=== PATIENT | male | born 1970 | race Caucasian/White ===

== ENCOUNTER 2025-03-24 14:12 | Emergency (ER) | payer BC, SELFPAY ==
[2025-03-24] VITALS (8 sets, daily range): BP systolic 124–140; BP diastolic 69–94; PULSE 60–72; RESP 13–20; TEMP 36.8–37; O2SAT 98; BMI 28.7
--- NOTE | 2025-03-24 14:12 | ECG_ITS ---
APPROVED REPORT Exam: Resting ECG HR:63 bpm ECG Measurements Heart Rate 63 AXES WI 187 P 49 QRSd 109 QRS 27 QT 397 T 18 QTc 404 Conclusion SINUS RHYTHM NORMAL ECG UNCONFIRMED REPORT Electronically signed by : CHERRY ALEXANDER, 03/27/2025 01:17:19
[2025-03-24 14:23] LABS: Microscopic, Urine URINE MICROSCOPIC (MICROSCOPIC)
--- NOTE | 2025-03-24 14:33 | XR_ITS ---
FINAL REPORT CLINICAL HISTORY: Chest pain COMPARISON: None FINDINGS: Film was obtained in lordotic positioning. The heart size is normal. The mediastinum is normal. There is no focal infiltrate or edema. There are no pleural effusions. There is no pneumothorax. There is no osseous abnormality. IMPRESSION: No acute cardiopulmonary process Reviewed, Interpreted and Dictated by Piyush Ontiveros MD Transcribed by Lucie Ortiz Authenticated and [facility]
[2025-03-24 14:40] LABS: Basophils # 0.1 K/mm3 (0-0.2); Basophils % 2.2 % (0.1-2.0); Eosinophils # 0.2 Kmm3 (0.0-0.4); Eosinophils % 2.8 % (0.1-12.0); Hematocrit 45.1 % (42.0-52.0); Hemoglobin 15.3 g/dL (14.1-18.0); Immature Granulocytes # 0.01 10^3uL; Immature Granulocytes % 0.2 %; Lymphocytes # 2.5 K/mm3 (0.7-4.5); Lymphocytes % 38.9 % (10-50); Mean Corpuscular HGB Conc 33.9 g/dL (31.8-35.4); Mean Corpuscular Hemoglobin 30.8 pg (27.0-31.2); Mean Corpuscular Volume 90.7 fl (80-94); Mean Platelet Volume 11.4 fl (7.4-10.4); Monocytes # 0.5 K/mm3 (0.1-1.0); Monocytes % 7.4 % (1.7-9.3); Neutrophils # 3.1 K/mm3 (1.8-7.8); Neutrophils % 48.5 % (37.0-80.0); Nucleated Red Blood Cells # 0 10^3/uL; Nucleated Red Blood Cells % 0 %; Platelet Count 196 K/mm3 (142-424); Red Blood Count 4.97 M/mm3 (4.60-6.20); Red Cell Distribution Width 12.4 % (11.5-17.5); White Blood Count 6.4 K/mm3 (4.8-10.8)
[2025-03-24 14:42] LABS: Appearance,Urine CLEAR (Clear); Bilirubin,Urine Negative (Negative); Blood, Urine Negative (Negative); Color,Urine YELLOW (Yellow); Glucose,Urine (UA) Negative (Negative); Ketones,Urine Negative (Negative); Leukocyte Esterase,Urine Negative (Negative); Nitrate,Urine Negative (Negative); Protein,Urine Negative (Negative); Urobilinogen,Urine 0.2 EU/dl (0.2)
[2025-03-24 14:43] LABS: Albumin Level 4.8 g/dl (3.5-5.0); Chloride 106 mmol/L (98-107); Potassium 4.4 mmoL/L (3.5-5.1); Sodium 142 mmol/L (136-145)
[2025-03-24 14:45] LABS: Alanine Aminotransferase 52 U/L (12-78); Aspartate Amino Transferase 43 U/L (17-59); Blood Urea Nitrogen 11 mg/dl (9-20); Creatinine Clearance Estimated 155 mL/min (50-200); Estimated Glomerular Filt Rate 118 ml/min (>60); GFR (African American) 142 ML/MIN (>60)
[2025-03-24 14:46] LABS: Albumin/Globulin Ratio 1.5 (1.1-1.8); Alkaline Phosphatase 101 U/L (38-126); Anion Gap 10.4 mEq/L (5-15); Bilirubin,Total 0.5 mg/dl (0.2-1.3); Calcium 9.8 mg/dl (8.4-10.2); Carbon Dioxide 30 mmol/L (22.0-30.0); Globulin 3.1 g/dL (1.3-3.2); Glucose 101 mg/dl (74-100); INR 0.92 (0.9-1.1); Magnesium 2.2 mg/dl (1.6-2.3); Prothrombin Time 10.3 seconds (10.1-12.5); Total Protein,Serum 7.9 g/dl (6.3-8.2)
--- NOTE | 2025-03-24 14:46 | ED_ITS ---
Discharge Plan Disposition Patient Disposition: Home, Self-Care Condition: Good Referrals Follow up/Referrals: Maco Bella [Primary Care Provider, Medical] - See instructions Activity Restrictions/Add. Instructions Additional Instructions/Restrictions: Please follow-up with your family doctor in the upcoming days/weeks, please return to the emergency department with any worsening signs or symptoms any worsening chest pain shortness of breath. Clinical Impressions Clinical Impression: Chest pain Instructions Patient Instructions: DI for Atypical Chest Pain Print Language Print Language: Belarusian Discharge ED Provider: Jose Alejandro Danielle HPI <DESMOND Atkins - Last Filed: 03/24/25 17:40> General Chief Complaint: Chest Pain Stated Complaint: CP Time Seen by Provider: 03/24/25 14:33 Mode of Arrival: Ambulatory Source of Information: Patient Description of Symptoms (Recalled from ER Triage Doc. by RN): patient states he has been having left sided sharp chest pains for a week and states he could not ignore it any longer today. Patient states pain sometimes radiates down left arm. Patient states that he saw PCP several months ago and was diagnosed with hyperlipidemia and was prescribed medication for that but he never picked it up and started it. History of Present Illness HPI narrative: 54-year-old male presents to the emergency department with left-sided chest pain that he describes as sharp , as well as pressure , that have been intermittent for the last 1 to 2 weeks, he states yesterday he experienced some sharp pain that was an 8 out of 10 located to the left side chest, nonradiating, this subsided, and today he experienced another episode approximately 2 hours ago and is currently ongoing which is a 7 out of 10 in maximal pain scale. Patient denies any fever chills, nausea, shortness of breath, no abdominal pain, no vomiting, no diarrhea no constipation, no hematuria melena hematochezia hematemesis, urinary type symptomatology, no lightheadedness no dizziness. There is no trauma or inciting event. Patient has remote history of hyperlipidemia, not taking any medications, denies any other relevant past medical history takes no other medications at home, unsure of family history. Patient utilizes tobacco occasionally, utilizes alcohol occasionally, denies any other illicit drug use. Initial triage vitals unremarkable. Patient does tell me that he is somewhat concerned about myocarditis , after reading some stuff online . Onset (ago): week(s) Duration: intermittent Activity at onset: during rest Pain location: left chest Severity: moderate Severity scale (1-10): 7 Quality: heaviness and sharp Pain radiation: none Related Data Allergies Allergy/AdvReac Type Severity Reaction Status Date / Time No Known Allergies Allergy Verified 03/24/25 14:25 [facility] <DESMOND Atkins - Last Filed: 03/24/25 17:40> [facility] Disclaimer: The information contained in this section may have been updated after the patient was seen, as this information can be updated by other users. Social History (Updated 03/24/25 @ 17:40 by DESMOND Atkins) Smoking Status: Never smoker alcohol intake: never current occupational status: other Travel in the last 8 weeks?: None Have you lived/traveled outside US in past 30 days?: No Contact w/someone who lives/traveled outside US past 30 days?: No Exposure to someone with infectious disease in past 14 days?: No Do you have a fever (greater than 100.4 F or 38 C)?: No Have you tested positive for COVID-19?: No Exposed to someone with COVID-19 in past 14 days?: No Do you have a sore throat?: No Do you have a cough?: No Do you have any weakness?: No Do you have any diarrhea?: No Are you experiencing any unusual bleeding?: No Do you have any muscle aches/pain?: No Do you have any abdominal pain?: No Are you experiencing loss of taste or smell?: No <DESMOND Atkins - Last Filed: 03/24/25 17:40> ROS Obtained: Yes All systems reviewed & no additional complaints except as documented Physical Exam <DESMOND Atkins - Last Filed: 03/24/25 17:40> General General appearance: alert and in no apparent distress Head Head exam: atraumatic and normocephalic Eye Eye exam: Present normal appearance, PERRL and EOMI Neck Neck exam: Present full ROM; Absent meningismus Chest Chest inspection: Present normal inspection Respiratory Respiratory exam: Absent respiratory distress, wheezes, stridor, accessory muscle use or prolonged expiratory phase Cardiovascular Cardiovascular exam: Present normal rhythm and other (Pulses equal and symmetric in bilateral upper and lower extremities) Abdominal Exam Abdominal exam: Absent distention, tenderness, guarding, rebound or rigidity Extremities Exam Extremities exam: Absent edema Neurological Exam Neurological exam: Present alert Psychiatric Psychiatric exam: Present normal affect Skin Skin exam: Present warm and dry HEART Score <DESMOND Atkins - Last Filed: 03/24/25 17:40> HEART Score HEART Score assessment performed?: Yes HEART Score: 2 <Chadd Jiang MD - Last Filed: 03/25/25 09:27> HEART Score HEART Score: 4 Critical Care <DESMOND Atkins - Last Filed: 03/24/25 17:40> Critical Care Time Critical Care Time: No Medical Decision Making <DESMOND Atkins - Last Filed: 03/24/25 17:40> Medical Records Medical records reviewed: Yes I reviewed the patient's medical records. Kody Inquiry Pt receiving controlled substance: Yes Kody was queried for this patient: No Reason not queried -: Emergent pt cond-no time Risks and benefits of using a controlled substance: were discussed with pt by me Vital Signs Vital Signs: 03/24/25 14:17 03/24/25 15:01 03/24/25 15:30 Temperature 98.6 F Temperature Source Oral Pulse Rate Pulse Rate [Right Radial] 72 Respiratory Rate 17 15 17 Blood Pressure 137/69 131/73 Blood Pressure [Right Arm] 140/94 H Blood Pressure Mean [Right Arm] 109 Blood Pressure Source [Right Arm] Automatic Cuff Blood Pressure Position [Right Arm] Sitting 02 Sat by Pulse Oximetry 98 Oxygen Delivery Method Room Air 03/24/25 16:00 03/24/25 16:30 03/24/25 17:00 Temperature Temperature Source Pulse Rate 62 Pulse Rate [Right Radial] Respiratory Rate 19 18 18 Blood Pressure 134/76 124/83 133/81 Blood Pressure [Right Arm] Blood Pressure Mean [Right Arm] Blood Pressure Source [Right Arm] Blood Pressure Position [Right Arm] 02 Sat by Pulse Oximetry Oxygen Delivery Method 03/24/25 17:30 03/24/25 17:50 Temperature 98.2 F Temperature Source Pulse Rate 60 Pulse Rate [Right Radial] Respiratory Rate 13 20 Blood Pressure 133/83 133/83 Blood Pressure [Right Arm] Blood Pressure Mean [Right Arm] Blood Pressure Source [Right Arm] Blood Pressure Position [Right Arm] 02 Sat by Pulse Oximetry Oxygen Delivery Method Room Air Lab Data Lab results reviewed: Yes I reviewed the patient's lab results. Labs: Lab Results 03/24/25 14:19: Urine Color Yellow, Urine Appearance Clear, Urine pH 7.0, Ur Specific [place] 1.010, Urine Protein Negative, Urine Glucose (UA) Negative, Urine Ketones Negative, Urine Blood Negative, Urine Nitrate Negative, Urine Bilirubin Negative, Urine Urobilinogen 0.2, Ur Leukocyte Esterase Negative, Urine RBC None, Urine WBC None, Ur Squamous Epith Cells None, Urine Bacteria None 03/24/25 14:25: WBC 6.4, RBC 4.97, Hgb 15.3, Hct 45.1, MCV 90.7, MCH 30.8, MCHC 33.9, RDW 12.4, Plt Count 196, MPV 11.4 H, Neut % (Auto) 48.5, Lymph % (Auto) 38.9, [place] % (Auto) 7.4, Eos % (Auto) 2.8, Baso % (Auto) 2.2 H, Neut # (Auto) 3.1, Lymph # (Auto) 2.5, [place] # (Auto) 0.5, Eos # (Auto) 0.2, Baso # (Auto) 0.1, PT 10.3, INR 0.92, D-Dimer 0.35, Sodium 142, Potassium 4.4, Chloride 106, Carbon Dioxide 30, Anion Gap 10.4, BUN 11, Creatinine 0.70, Estimated Creat Clear 155, Estimated GFR 118, Est GFR ( Amer) 142, Glucose 101 H, Calcium 9.8, Magnesium 2.2, Total Bilirubin 0.5, AST 43, ALT 52, Alkaline Phosphatase 101, Troponin I < 0.01, NT-Pro-B Natriuret Pep 61.1, Total Protein 7.9, Albumin 4.8, Globulin 3.1, Albumin/Globulin Ratio 1.5 03/24/25 14:48: SARS-CoV-2 (PCR) Not detected, Influenza A Untype (PCR) Not detected, Influenza Type B (PCR) Not detected 03/24/25 16:47: Troponin I < 0.01 03/24/25 14:25 03/24/25 14:25 Response Orders (Tests/Meds): ED MEDICATIONS Discontinued Medications Generic Name Dose Route Start Last Admin Trade Name Freq PRN Reason Stop Dose Admin Aspirin 325 mg 03/24/25 14:45 03/24/25 15:12 Aspirin 325mg Tablet PO 03/24/25 14:46 325 mg ONCE ONE Administration Morphine Sulfate 4 mg 03/24/25 14:52 03/24/25 15:15 Morphine 4mg/Ml Syringe IV 03/24/25 14:53 Not Given ONCE ONE Ondansetron HCl 4 mg 03/24/25 14:53 03/24/25 15:15 Ondansetron 4mg/2ml Vial IV 03/24/25 14:54 Not Given ONCE ONE ORDERS Category Date Time Status XR chest portable Stat Exams 03/24/25 14:33 Completed Complete Blood Count Auto Diff Stat Lab 03/24/25 14:25 Completed Comprehensive Metabolic Panel Stat Lab 03/24/25 14:25 Completed D-Dimer Stat Lab 03/24/25 14:25 Completed Magnesium Stat Lab 03/24/25 14:25 Completed NT Pro Brain Natriuretic Pep. Stat Lab 03/24/25 14:25 Completed PT INR [Prothrombin Time INR] Stat Lab 03/24/25 14:25 Completed Rapid PCR Covid and Flu A/B Stat Lab 03/24/25 14:48 Completed Troponin I Q3H Lab 03/24/25 16:47 Completed Troponin I Stat Lab 03/24/25 14:25 Completed UA [Urinalysis and Microscopic] Stat Lab 03/24/25 14:19 Completed MDM Narrative Medical Decision Narrative: 54-year-old male presents emergency department with chest pain differential diagnosis to include but not limited to ACS, cardiac arrhythmia, electro disturbance, PE, costochondritis, pneumonia, pneumothorax, new onset CHF, acute bronchitis among others. discussed patient case with attending physician he saw and examined the patient as well. Will obtain basic laboratory studies, chest x-ray D-dimer magnesium level proBNP PT/INR, troponin, UA, rapid PCR COVID and flu, EKG, give the 325 mg p.o. aspirin for pain, as well as 4 mg morphine IV and 4 mg IV Zofran. CBC unremarkable PT/INR within normal limits Urinalysis is unremarkable CMP is notable for I along with the attending physician reviewed the patient's initial EKG that was performed at 14:12, NSR at 63 bpm [place] interval within normals, QT interval within normal limits there is no STEMI. Troponin is less than 0.01, proBNP within normal limits. Was notified by nursing staff at approximately 3:10 PM the patient declined/refused morphine and Zofran administration. D-dimer is negative, at 0.35, thus ruling out PE/VTE. COVID-19 and influenza are negative via PCR. I reviewed the patient's chest x-ray along the corresponding radiologic report, no acute cardiopulmonary process. Repeat troponin is less than 0.01. 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 I believe that less likely to be cardiac in nature of the patient symptomatology, more likely patient has musculoskeletal versus anxiety/panic attack type reaction to his chest pain. Patient voiced understanding of the [facility] plan/discharge plan. <Chadd Jiang MD - Last Filed: 03/25/25 09:27> Vital Signs Vital Signs: 03/24/25 14:17 03/24/25 15:01 03/24/25 15:30 Temperature 98.6 F Temperature Source Oral Pulse Rate Pulse Rate [Right Radial] 72 Respiratory Rate 17 15 17 Blood Pressure 137/69 131/73 Blood Pressure [Right Arm] 140/94 H Blood Pressure Mean [Right Arm] 109 Blood Pressure Source [Right Arm] Automatic Cuff Blood Pressure Position [Right Arm] Sitting 02 Sat by Pulse Oximetry 98 Oxygen Delivery Method Room Air 03/24/25 16:00 03/24/25 16:30 03/24/25 17:00 Temperature Temperature Source Pulse Rate 62 Pulse Rate [Right Radial] Respiratory Rate 19 18 18 Blood Pressure 134/76 124/83 133/81 Blood Pressure [Right Arm] Blood Pressure Mean [Right Arm] Blood Pressure Source [Right Arm] Blood Pressure Position [Right Arm] 02 Sat by Pulse Oximetry Oxygen Delivery Method 03/24/25 17:30 03/24/25 17:50 Temperature 98.2 F Temperature Source Pulse Rate 60 Pulse Rate [Right Radial] Respiratory Rate 13 20 Blood Pressure 133/83 133/83 Blood Pressure [Right Arm] Blood Pressure Mean [Right Arm] Blood Pressure Source [Right Arm] Blood Pressure Position [Right Arm] 02 Sat by Pulse Oximetry Oxygen Delivery Method Room Air Lab Data Labs: Lab Results 03/24/25 14:19: Urine Color Yellow, Urine Appearance Clear, Urine pH 7.0, Ur Specific [place] 1.010, Urine Protein Negative, Urine Glucose (UA) Negative, Urine Ketones Negative, Urine Blood Negative, Urine Nitrate Negative, Urine Bilirubin Negative, Urine Urobilinogen 0.2, Ur Leukocyte Esterase Negative, Urine RBC None, Urine WBC None, Ur Squamous Epith Cells None, Urine Bacteria None 03/24/25 14:25: WBC 6.4, RBC 4.97, Hgb 15.3, Hct 45.1, MCV 90.7, MCH 30.8, MCHC 33.9, RDW 12.4, Plt Count 196, MPV 11.4 H, Neut % (Auto) 48.5, Lymph % (Auto) 38.9, [place] % (Auto) 7.4, Eos % (Auto) 2.8, Baso % (Auto) 2.2 H, Neut # (Auto) 3.1, Lymph # (Auto) 2.5, [place] # (Auto) 0.5, Eos # (Auto) 0.2, Baso # (Auto) 0.1, PT 10.3, INR 0.92, D-Dimer 0.35, Sodium 142, Potassium 4.4, Chloride 106, Carbon Dioxide 30, Anion Gap 10.4, BUN 11, Creatinine 0.70, Estimated Creat Clear 155, Estimated GFR 118, Est GFR ( Amer) 142, Glucose 101 H, Calcium 9.8, Magnesium 2.2, Total Bilirubin 0.5, AST 43, ALT 52, Alkaline Phosphatase 101, Troponin I < 0.01, NT-Pro-B Natriuret Pep 61.1, Total Protein 7.9, Albumin 4.8, Globulin 3.1, Albumin/Globulin Ratio 1.5 03/24/25 14:48: SARS-CoV-2 (PCR) Not detected, Influenza A Untype (PCR) Not detected, Influenza Type B (PCR) Not detected 03/24/25 16:47: Troponin I < 0.01 Response Orders (Tests/Meds): ED MEDICATIONS Discontinued Medications Generic Name Dose Route Start Last Admin Trade Name Freq PRN Reason Stop Dose Admin Aspirin 325 mg 03/24/25 14:45 03/24/25 15:12 Aspirin 325mg Tablet PO 03/24/25 14:46 325 mg ONCE ONE Administration Morphine Sulfate 4 mg 03/24/25 14:52 03/24/25 15:15 Morphine 4mg/Ml Syringe IV 03/24/25 14:53 Not Given ONCE ONE Ondansetron HCl 4 mg 03/24/25 14:53 03/24/25 15:15 Ondansetron 4mg/2ml Vial IV 03/24/25 14:54 Not Given ONCE ONE ORDERS Category Date Time Status XR chest portable Stat Exams 03/24/25 14:33 Completed Complete Blood Count Auto Diff Stat Lab 03/24/25 14:25 Completed Comprehensive Metabolic Panel Stat Lab 03/24/25 14:25 Completed D-Dimer Stat Lab 03/24/25 14:25 Completed Magnesium Stat Lab 03/24/25 14:25 Completed NT Pro Brain Natriuretic Pep. Stat Lab 03/24/25 14:25 Completed PT INR [Prothrombin Time INR] Stat Lab 03/24/25 14:25 Completed Rapid PCR Covid and Flu A/B Stat Lab 03/24/25 14:48 Completed Troponin I Q3H Lab 03/24/25 16:47 Completed Troponin I Stat Lab 03/24/25 14:25 Completed UA [Urinalysis and Microscopic] Stat Lab 03/24/25 14:19 Completed MDM Narrative Medical Decision Narrative: 54-year-old male presents emergency department with chest pain differential diagnosis to include but not limited to ACS, cardiac arrhythmia, electro disturbance, PE, costochondritis, pneumonia, pneumothorax, new onset CHF, acute bronchitis among others. discussed patient case with attending physician he saw and examined the patient as well. Will obtain basic laboratory studies, chest x-ray D-dimer magnesium level proBNP PT/INR, troponin, UA, rapid PCR COVID and flu, EKG, give the 325 mg p.o. aspirin for pain, as well as 4 mg morphine IV and 4 mg IV Zofran. CBC unremarkable PT/INR within normal limits Urinalysis is unremarkable CMP is notable for I along with the attending physician reviewed the patient's initial EKG that was performed at 14:12, NSR at 63 bpm [place] interval within normals, QT interval within normal limits there is no STEMI. Troponin is less than 0.01, proBNP within normal limits. Was notified by nursing staff at approximately 3:10 PM the patient declined/refused morphine and Zofran administration. D-dimer is negative, at 0.35, thus ruling out PE/VTE. COVID-19 and influenza are negative via PCR. I reviewed the patient's chest x-ray along the corresponding radiologic report, no acute cardiopulmonary process. Repeat troponin is less than 0.01. 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 I believe that less likely to be cardiac in nature of the patient symptomatology, more likely patient has musculoskeletal versus anxiety/panic attack type reaction to his chest pain. Patient voiced understanding of the [facility] plan/discharge plan. I was consulted by the YAMILE, and we discussed the complexity of the problems being addressed.I approved the treatment and management plan for this patient?s care in the Emergency Department, thus performing a substantive portion of the medical decision making.Signed, MD EILEEN CraigA
[2025-03-24 14:53] LABS: Coronavirus 19, PCR Not Detected (NotDetected); Influenza A, PCR Not Detected (NotDetected); Influenza B, PCR Not Detected (NotDetected)
[2025-03-24 14:56] LABS: NT Pro Brain Natriuretic Pep. 61.1 pg/mL (0-125)
--- OUTSIDE RECORDS SUMMARY | 2025-03-24 14:56 | XMS_ITS | Clinical Summary ---
Author Organization [facility] Address [address] [place] [address] Care Team Providers Care Wire Drawer Name Role Phone Unavailable Primary Care Provider Unavailabl e Allergies No known active allergies Medications VITAMIN D PO Take by mouth Active Cyanocobalamin (VITAMIN B-12 PO) Take by mouth Active TURMERIC PO Take by mouth Active Family History Medical History Relation Name Comments Arthritis Mother Glaucoma Mother Relation Name Status Comments Father Mother Alive Social History Tobacco Use Types Packs/Day Years Used Date Smoking Tobacco: Never Smokeless Tobacco: Never Alcohol Use Standard Drinks/Week Comments Not Currently 0 (1 standard drink = 0.6 oz pur e alcohol) Sex and Gender Information Value Date Recorded Sex Assigned at Not on file Legal Sex Male 8:21 PM EST Gender Identity Not on file Sexual Orientation Not on file Last Filed Vital Signs Vital Sign Reading Time Taken Comments Blood Pressure - - Pulse - - Temperature - - Respiratory Rate 12 02/27/2020 10:10 AM EDT Oxygen Saturation - - Inhaled Oxygen Concentration - - Weight 93 kg (205 lb) 02/27/2020 10:10 AM EDT Height 177.8 cm (5' 10 ) 02/27/2020 10:10 AM EDT Body Mass Index 29.41 02/27/2020 10:10 AM EDT Plan of Treatment Not on file Insurance OR BCBS
--- OUTSIDE RECORDS SUMMARY | 2025-03-24 14:56 | XMS_ITS | Clinical Summary ---
Author Organization [facility] Address [address] [place] [id number] Care Team Providers Care Industrial Welder Name Role Phone Maco Sahni MD Primary Care Provider [phone] Source Comments This information has been disclosed to you from confidential records protectedfrom disclosure by state law. You shall make no further disclosure of thisinformation without the specific, written, and informed release of theindividual to whom it pertains, or as otherwise permitted by law. A generalauthorization for the release of medical or other information is not sufficientfor the purposes of therelease of HIV test results or diagnoses. [id number] Allergies Active Allergy Reactions Criticality Noted Date Comments Moth Balls Hives 05/20/2020 Medications acetaminophen (TYLENOL) 500 MG tablet Take by mouth. Take 2 Tabs by mouth every 8 hours as needed for Pain. 06/03/2020 Active ibuprofen (MOTRIN) 200 MG tablet Take by mouth. Take 200 mg by mouth every 8 hours as needed for Pain. Active baclofen (LIORESAL) 10 MG tablet TAKE 1 TABLET (10 MG TOTAL) BY MOUTH 3 TIMES A DAY NEEDED. 45 tablet 3 09/11/2021 Active traZODone (DESYREL) 50 MG tablet 09/08/2021 Active cyanocobalamin (VITAMIN B-12) 1000 MCG tablet Take 1,000 mcg by mouth daily. Active cholecalciferol , vitamin D3, 125 mcg (5,000 unit) Tab Take by mouth daily. Active amitriptyline (ELAVIL) 25 MG tablet TAKE 1 TABLET BY MOUTH EVERYDAY AT BEDTIME 90 tablet 2 09/27/2021 Active TURMERIC ORAL Take by mouth daily. Active Active Problems Problem Noted Date Diagnosed Date Vitamin D deficiency 07/11/2019 Overview (09/22/2021): replace Family History Medical History Relation Comments Alcohol abuse Father Early Father Emphysema Father Heart disease Maternal Grandfather Hyperlipidemia Maternal Grandfather Hypertension Maternal Grandfather Heart disease Maternal Grandmother Hyperlipidemia Maternal Grandmother Hypertension Maternal Grandmother Arthritis Mother Depression Mother Fibromyalgia Mother Glaucoma Mother Osteoporosis Paternal Uncle Anesthesia problems Neg Hx Cancer Neg Hx Colon Cancer Neg Hx Prostate Cancer Neg Hx Relation Status Comments Father emphysema Maternal Grandfather Maternal Grandmother Mother pneumonia Paternal Grandfather Paternal Grandmother Paternal Uncle Alive Social History Tobacco Use Types Packs/Day Years Used Date Smoking Tobacco: Never Smokeless Tobacco: Never Tobacco Cessation:Counseling Given: Yes Alcohol Use Standard Drinks/Week Comments Never 0 (1 standard drink = 0.6 oz pur e alcohol) AUDIT-C Answer Date Recorded Q1: How often do you have a drink containing alc ohol? Never 07/07/2021 Average Number of Drinks Not on file Frequency of Binge Drinking Not on file 06/17 Sex and Gender Information Value Date Recorded Sex Assigned at Not on file Legal Sex Male 7:39 PM EST Gender Identity Not on file Sexual Orientation Not on file Last Filed Vital Signs Vital Sign Reading Time Taken Comments Blood Pressure 112/74 09/29/2021 11:59 AM EST Pulse 62 09/29/2021 11:59 AM EST Temperature - - Respiratory Rate - - Oxygen Saturation 100% 09/01/2021 10: 13 AM EST Inhaled Oxygen Concentration 100% 10:13 AM EST Weight 97.9 kg (215 lb 12.8 oz) 021 11:59 AM EST Height 177.8 cm (5' 10 ) 09/29/2021 11: 59 AM EST Body Mass Index 30.96 09/29/2021 11:59 AM EST Plan of Treatment Not on file Insurance [employer] Care Teams Industrial Welder Relationship Specialty Start Date End Date Maco Sahni MD [address] [place], [place] [id number] PCP - General Family Medicine 07/07/21
--- OUTSIDE RECORDS SUMMARY | 2025-03-24 14:56 | XMS_ITS | Clinical Summary ---
Author Organization [facility] Address [address] [place], [place] [address] Phone Care Team Providers Care Farm Adviser Name Role Phone Maco Sahni MD Primary Care Provider [phone] Allergies Active Allergy Reactions Criticality Noted Date Comments Moth Balls Hives 05/20/2020 Medications cyanocobalamin 1,000 mcg Oral Tablet Take 1,000 mcg by mouth daily. Active turmeric (CURCUMIN MISC) 400 mg by Misc.(Non-Drug; Combo Route) route. Active vitamin D3-vitamin K2, MK4, (K2 PLUS D3) 1,000-100 unit-mcg Oral Tablet Take by mouth. Activ e icosapent ethyL (VASCEPA) 1 gram Oral CapsuleIndicati ons:hypertrigly ceridemia Take 2 Capsules by mouth 2 times daily for 90 days. Indications: high amount of triglyceride in the blood 120 Capsule 2 4 Active Active Problems Problem Noted Date Diagnosed Date Hypertriglyceridemia 09/16/2024 Vitamin D deficiency 07/11/2019 Overview (07/11/2019): replace Assessment & Plan (09/16/2024 10:11 AM EST): Orders: VITAMIN D 25 HYDROXY; Future Abnormal TSH 07/11/2019 Overview (10/18/2021): No ongoing symptoms. Continue to monitor. Low testosterone 07/11/2019 Overview (07/16/2020): Normal total Decreased free eleavated SHBG No ongoing symptoms. monitor Alcohol screening 05/31/2017 Overview (05/31/2017): Does not drink alcohol Screening for depression 02/29/2016 Overview (05/31/2017): Depression Screening: In the past two weeks, how often have you felt down, depressed, or hopeless? None Have you felt little interest or pleasure in doing things? no Screening for HIV (human immunodeficiency virus) 02/29/2016 Overview (02/29/2016): 02/29/16 Obesity, Class I, BMI 30-34.9 02/29/2016 Overview (10/18/2021): Wt Readings from Last 3 Encounters: 10/18/21 213 lb (96.6 kg) 03/10/21 215 lb 6.4 oz (97.7 kg) 07/16/20 211 lb 12.8 oz (96.1 kg) Diet and exercise Encounters Date Type Department Care Team Description 01/13/2025 Orders Only [facility] [address] [place] [address] Maco Sahni MD Hypertriglyceridemia (Primary Dx) 01/13/2025 Telephone [facility] [address] [place] [phone] Maco Sahni MD Appointment Needed (labs) from Last 3 Months Immunizations Immunization Administration Dates Next Due Hepatitis A, Adult 12/01/2021,05/25/2021 Influenza Vaccine, Unspecified Formulation 07/11 Tdap 10/18/2021,12/27/2010 Surgical History Surgery Date Site/Laterality Comments TONSILLECTOMY AND ADENOIDECTOMY HIP ARTHROPLASTY 06/02/2020 Hip/Right RIGHT TOTAL HIP REPLACEMENT; Surgeon: Krishna Senior MD; Location: [facility] MAIN OR; Service: Orthopedics Medical devices from this surgery are in the Medical Devices section. Medical History Medical History Date Comments Herniated intervertebral disk C4 Anxiety Arthritis Family History Medical History Relation Name Comments Early Father Other Father emphesema Substance Abuse Father alcoholism Heart Disease Maternal Grandfather High Blood Pressure Maternal Grandfather High Cholesterol Maternal Grandfather Heart Disease Maternal Grandmother High Blood Pressure Maternal Grandmother High Cholesterol Maternal Grandmother Depression Mother Other Mother Fibromyalgia Other Paternal Uncle Osteoprosis Anesth Problems Neg Hx Cancer Neg Hx Colon Cancer Neg Hx Prostate Cancer Neg Hx Relation Name Status Comments Father Maternal Grandfather Maternal Grandmother Mother Paternal Grandfather Paternal Grandmother Paternal Uncle Alive Social History Tobacco Use Types Packs/Day Years Used Date Smoking Tobacco: Never Smokeless Tobacco: Never Tobacco Cessation:Counseling Given: Not Answered Alcohol Use Standard Drinks/Week Comments Never 0 (1 standard drink = 0.6 oz pur e alcohol) AUDIT-C Answer Date Recorded Q1: How often do you have a drink containing alc ohol? Never 03/10/2021 Average Number of Drinks Not on file 021 Frequency of Binge Drinking Not on file 02/14 PHQ-2 Answer Date Recorded PHQ-2 Total Score 0 09/16/2024 Sex and Gender Information Value Date Recorded Sex Assigned at Not on file Legal Sex Male 5:48 AM EDT Gender Identity Not on file Sexual Orientation Not on file Obstetrics History Last Filed Vital Signs Vital Sign Reading Time Taken Comments Blood Pressure 112/68 09/16/2024 9:35 AM EST Pulse 74 09/16/2024 9:35 AM EST Temperature 36.6 C (97.9 F) 09/16/2024 9:35 AM EST Respiratory Rate 20 09/16/2024 9:35 AM EST Oxygen Saturation 96% 09/16/2024 9:35 AM EST Inhaled Oxygen Concentration - - Weight 99.2 kg (218 lb 9.6 oz) 09/16/2024 9:35 A M EST Height 177.8 cm (5' 10 ) 09/16/2024 9:35 AM EST Body Mass Index 31.37 09/16/2024 9:35 AM EST Plan of Treatment Health Maintenance Due Date Last Done Comments Hepatitis B Vaccine (1 of 3 - 19+ 3-dose series) 1989 Colonoscopy 2015 FIT 2015 Sigmoidoscopy 2015 Virtual Colonography 2015 Pneumococcal Vaccine 50+ (1 of 1 - PCV) 2020 Zoster (1 of 2) 2020 Cologuard 03/23/2024 03/23/2021, 03/23/2021 Colon Cancer Screening 03/23/2024 COVID-19 Vaccine (4 - 2023-2 5 season) 2024 09/17/2021, 03/02/2021, 01/26/2021 Influenza Vaccine (Season Ended) 2025 07/11/2016, 07/11/2016 Annual Wellness Exam 09/16/2025 09/16/2024 DTaP/TDaP/Td (3 - Td or Tdap) 10/18/2031, 12/27/2010 Meningococcal B Vaccine Aged Out No l onger eligible based on patient's age to complete this topic Goals Goal Patient Goal Type Associated Problems Recent Progress Patient-Stated? Author Maintain a healthy diet, exercise regularly and maintain an ideal body weight General No Columba Novak CMA Medical Devices Implanted Type Area Technical Product Manager Device Identifier Shelf Expiration Date Model / Serial / Lot Trident Ii Tritanium Clusterhole 54e - [id number] Implanted:Qty: 1 on 06/02/2020 by Krishna Senior MD at [facility] Right: Hip [employer] [id number] 11/17/2024 702-04-54 E / / [id number] Screw Trident Ii Hex Low Profile 6.5mm X 25mm - [id number] Implanted:Qty: 1 on 06/02/2020 by Krishna Senior MD at [facility] Right: Hip [employer] [id number] 11/30/2024 0898-0152 / / [id number] Mdm Cocr Liner 42mm E - [id number] Implanted:Qty: 1 on 06/02/2020 by Krishna Senior MD at [facility] Right: Hip [employer] [id number] 12/28/2024 626-00-42 E / / [id number] Druze Adm X3 Insert Id 28mm For Cup Od 48mm - [id number] Implanted:Qty: 1 on 06/02/2020 by Krishna Senior MD at [facility] Right: Hip [employer] [id number] 05/05/2025 1236-2-84 8 / / [id number] Size 6 Accolade Ii 127 Deg - [id number] Implanted:Qty: 1 on 06/02/2020 by Krishna Senior MD at [facility] Right: Hip [employer] [id number] 04/21/2025 0535-8476 / / [id number] Head Fem -2.7mm Ofst Tpr 28mm Hip Blx D V40 Strl - [id number] Implanted:Qty: 1 on 06/02/2020 by Krishna Senior MD at [facility] Right: Hip [employer] [id number] 05/07/2025 6570-0-32 8 / / [id number] Procedures Procedure Name Priority Date/Time Associated Diagnosis Comments COLOGUARD Routine 03/23/2021 7:45 AM EDT Colon cancer screening from Last 3 Months or Most Recently Relevant to Health Maintenance Results * COLOGUARD (03/23/2021 7:45 AM EDT) COLOGUARD CLINICAL REPORT Negative Negative [facility] Comment: NEGATIVE TEST RESULT. A negative Cologuard result indicates a low likelihood that a colorectal cancer (CRC) or advanced adenoma (adenomatous polyps with more advanced pre-malignant features) is present. The chance that a person with a negative Cologuard test has a colorectal cancer is less than 1 in 1500 (negative predictive value >99.9%) or has an advanced adenoma is less than 5.3% (negative predictive value 94.7%). These data are based on a prospective cross-sectional study of 10,000 individuals at average risk for colorectal cancer who were screened with both Cologuard and colonoscopy. (Wiliam Fry. et al, N Engl J Med 2014;370(14):0343-5913) The normal value (reference range) for this assay is negative. COLOGUARD RE-SCREENING RECOMMENDATION: Periodic colorectal cancer screening is an important part of preventive healthcare for asymptomatic individuals at average risk for colorectal cancer. Following a negative Cologuard result, the [place] [employer] and U.S. Multi-Society Task Force screening guidelines recommend a Cologuard re-screening interval of 3 years. References: [place] [employer] Guideline for Colorectal Cancer Screening: https://www.cancer.org/cancer/rtmek-enspby-trmple/pjtclkwqg-ohesyrorp-ceqkueh/ac s-rec ommendations.html.; Junaid ROBIN, Verena COURTNEY, Daisha BENOIT, Colorectal Cancer Screening: Recommendations for Physicians and Patients from the U.S. Multi-Society Task Force on Colorectal Cancer Screening , Am J Gastroenterology 2017; 112:5101-9319. TEST DESCRIPTION: Composite algorithmic analysis of stool DNA-biomarkers with hemoglobin immunoassay. Quantitative values of individual biomarkers are not reportable and are not associated with individual biomarker result reference ranges. Cologuard is intended for colorectal cancer screening of adults of either sex, 45 years or older, who are at average-risk for colorectal cancer (CRC). Cologuard has been approved for use by the U.S. FDA. The performance of Cologuard was established in a cross sectional study of average-risk adults aged 50-84. Cologuard performance in patients ages 45 to 49 years was estimated by sub-group analysis of near-age groups. Colonoscopies performed for a positive result may find as the most clinically significant lesion: colorectal cancer [4.0%], advanced adenoma (including sessile serrated polyps greater than or equal to 1cm diameter) [20%] or non- advanced adenoma [31%]; or no colorectal neoplasia [45%]. These estimates are derived from a prospective cross-sectional screening study of 10,000 individuals at average risk for colorectal cancer who were screened with both Cologuard and colonoscopy. (Wiliam Mccray al, N Engl J Med 2014;370(14):8414-9291.) Cologuard may produce a false negative or false positive result (no colorectal cancer or precancerous polyp present at colonoscopy follow up). A negative Cologuard test result does not guarantee the absence of CRC or advanced adenoma (pre-cancer). The current Cologuard screening interval is every 3 years. ([place] [employer] and U.S. Multi-Society Task Force). Cologuard performance data in a 10,000 patient pivotal study using colonoscopy as the reference method can be accessed at the following location: www.exactlabs.com/results. Additional description of the Cologuard test process, warnings and precautions can be found at www.cologuard.com. Stool specimen (specimen) 03/23/2021 7:45 AM EDT 03/24/2021 8:29 PM EDT Maco Sahni MD [employer] - ORDERABLES Final Result [employer] [address] [place] [address], [facility] [employer] [facility] [place] [address] from Last 3 Months or Most Recently Relevant to Health Maintenance Insurance Accela O Accela O Advance Directives For more information, please contact: [phone] Documents on File Type Date Recorded Patient Support Team Member Expl anation ADVANCE DIRECTIVE 06/02/2020 9:43 AM * Full Code (Latest Code Status on File) Date Activated Date Inactivated Comments 06/02/2020 3:42 PM 06/03/2020 8:24 PM Care Teams Farm Adviser Relationship Specialty Start Date End Date Maco Sahni MD [address] [place], [place] [address] PCP - General 12/23/10
[2025-03-24 15:03] LABS: Troponin I < 0.01 ng/ml (0.00-0.034)
[2025-03-24] MEDS: ASPIRIN 325MG TABLET 325 MG PO (15:12)
[2025-03-24 15:14] LABS: D-Dimer 0.35 ug/mL (0.0-0.5)
[2025-03-24 17:34] LABS: Troponin I < 0.01 ng/ml (0.00-0.034)
== END 2025-03-24 17:51 | disposition home or self-care (01) ==
PROVIDERS: Emergency Medicine; Physician Assistant; Emergency Provider Student in an Organized Health Care Education/Training Program; PCP Internal Medicine Cardiovascular Disease
DX: R07.89 Other chest pain (principal)
CPT/HCPCS: 71045; 80053; 81001; 83735; 83880; 84484; 85025; 85378; 85610; 87636; 93005; 99284